=== PATIENT | female | born 1950 | race Caucasian/White ===

== ENCOUNTER 2023-11-03 09:44 | Observation (INO) ==
[2023-11-03] MEDS ORDERED: Famotidine IV 10 MG/ML 2 ml VIAL (20 mg) ONE (10:04)
[2023-11-03] MEDS ORDERED: Tranexamic Acid 1 GM/100ML BAG 2,000 MG/200 ML BAG IV ONE (10:06)
[2023-11-03] MEDS ORDERED: ceFAZolin 2 GM PREMIX 2 GM/50 ML BAG ONE (10:12)
[2023-11-03] MEDS ORDERED: Propofol 10 MG/ML 20 ML BTL ONE ×3 (10:30→14:36)
[2023-11-03] MEDS ORDERED: Lidocaine 2% PF 5 ML VIAL ONE (10:30)
[2023-11-03] MEDS ORDERED: fentaNYL 250 mcg/5 ml 50 MCG/ML 5 ml VIAL (250 MCG) ONE (10:31)
[2023-11-03] MEDS ORDERED: Rocuronium 50 mg VIAL 10 mg/ml 5 ml VIAL (50 mg) ONE (10:31)
[2023-11-03] MEDS: Famotidine IV 10 MG/ML 2 ml VIAL (20 mg) IV ONE (10:38)
[2023-11-03] MEDS: Lactated Ringers 1000 ml BAG 1,000 ML IV SCH ×2 (10:38→16:51)
[2023-11-03 10:40] LABS: Rapid COVID-19 Molecular Undetected (Undetected)
[2023-11-03] MEDS ORDERED: fentaNYL 100 mcg/2 ml 50 MCG/ML VIAL ONE (11:08)
[2023-11-03] MEDS ORDERED: ROPIVACAINE 5 MG/ML 30 ML BTL (0.5%) ONE ×2 (11:08→14:03)
[2023-11-03] MEDS ORDERED: Midazolam 5 mg/5 ml VIAL 1 mg/ml 5 ml VIAL (5 mg) ONE (11:08)
[2023-11-03] MEDS ORDERED: fentaNYL 100 mcg/2 ml 50 MCG/ML VIAL IV PRN (12:45)
[2023-11-03] MEDS ORDERED: Naloxone 0.4 mg VIAL 0.4 mg/ml 1 ml VIAL IV PRN (12:45)
[2023-11-03] MEDS ORDERED: HYDROmorphone 1 MG/1 ML SYRINGE IV PRN (12:45)
[2023-11-03] MEDS ORDERED: Acetaminophen IV 1 GM/100ML 1,000 MG/100 ML BAG IV ONE (13:30)
[2023-11-03] MEDS ORDERED: Ondansetron 4 mg VIAL 2 MG/ML 2 ml VIAL ONE (13:59)
[2023-11-03] MEDS ORDERED: Magnesium Hydroxide LIQ 30 ML UDC PO PRN (15:24)
[2023-11-03] MEDS ORDERED: Ondansetron ODT 4 mg TAB 4 MG TAB PO PRN (15:24)
[2023-11-03] MEDS ORDERED: Ondansetron 4 mg VIAL 2 MG/ML 2 ml VIAL IV PRN (15:24)
[2023-11-03] MEDS ORDERED: Lactulose 30 ml UDC PO PRN (15:24)
[2023-11-03] MEDS: Prochlorperazine 5 mg/ml 2 ml VIAL (10 mg) IV ONE (18:21)
[2023-11-03] MEDS: Morphine 2 MG/ML SYRINGE IV PRN (18:53)
[2023-11-03] MEDS: Buffered Lidocaine 1% SYRIN 1 ml INTRADERM ONE (19:14)
[2023-11-03] MEDS: ceFAZolin 1 GM ADVAN 1 GM in NS 0.9% 50 ML 50 ML IVPB SCH (22:43)
[2023-11-03] MEDS: Magnesium Hydroxide LIQ 30 ML UDC PO SCH (22:50)
[2023-11-04 07:31] LABS: Hematocrit 32.5 % (35-45); Mean Platelet Volume 7.3 fL (7.5-11.2); Platelet Count 168 10^3/uL (150-450)
[2023-11-04 09:01] LABS: Anion Gap 12 mmol/L (2-16); Blood Urea Nitrogen 10 mg/dL (6-24); CO2 Carbon Dioxide 24 mmol/L (22-32); Calcium 8.2 mg/dL (8.6-10.3); Chloride 104 mmol/L (101-111); Creatinine, Serum 0.57 mg/dL (0.51-0.95); Glucose 103 mg/dL (70-100); Sodium 140 mmol/L (135-145); eGFR CKD-EPI 95.9 (>60)
[2023-11-04] MEDS: Vitamin THERAPEUTIC TAB PO SCH (09:15)
[2023-11-04 14:45] VITALS: BP 138/72
== END 2023-11-04 15:05 | disposition home or self-care (01) ==
LOC: SSU 09:44 → OR 09:44
PROVIDERS: ADMIT Orthopaedic Surgery Adult Reconstructive Orthopaedic Surgery; ATTEND Orthopaedic Surgery Adult Reconstructive Orthopaedic Surgery